=== PATIENT | male | born 1990 | race Asian ===

== ENCOUNTER 2017-04-25 14:19 | Emergency (ER) | payer SELFPAY ==
[~2017-04-25] VITALS: Ht 175.3 cm; Wt 56.7 kg
[2017-04-25 14:25] VITALS: BP 123/84
[2017-04-25] MEDS ORDERED: TRUVADA 200 MG1 EAC1 ORAL (14:47)
--- NOTE | 2017-04-25 14:48 | Emergency Room Report ---
History of Present Illness General Chief Complaint: General Complaint Source: Patient Present Illness HPI 26 y/o homosexual male c/o post exposure prophylaxis. Patient states that he received anal intercourse with another male partner last night which was unprotected. The patient states that he is unsure if the partner had climaxed while penetrated or not and is requesting PREP. States he has no hx of STIs in the past and has no physical complaints. Denies any drainage, abnormal growths, abd pain, rectal pain, rectal bleeding, testicular pain, fatigue, weakness or hx of STIs. Allergies: Coded Allergies: No Known Allergies (Unverified , 04/25/17) Patient History Past Medical History: see triage record Past Surgical History: none Pertinent Family History: none Reviewed Nursing Documentation: PMH: Agreed, PSxH: Agreed Nursing Documentation-PMH Past Medical History: No Stated History Review of Systems All Other Systems: negative except mentioned in HPI Physical Exam Vital Signs Date Time Temp Pulse Resp B/P (MAP) Pulse Ox O2 Delivery O2 Flow Rate FiO2 04/25/17 14:25 98.2 82 18 123/84 99 Room Air Sp02 EP Interpretation: reviewed, normal General Appearance: no apparent distress, alert, GCS 15, non-toxic Head: normocephalic, atraumatic Eyes: bilateral eye normal inspection, bilateral eye PERRL ENT: hearing grossly normal, normal pharynx, no angioedema, normal voice Neck: full range of motion, supple/symm/no masses Respiratory: chest non-tender, lungs clear, normal breath sounds, speaking full sentences Cardiovascular #1: regular rate, rhythm, no edema Musculoskeletal: normal inspection, gait/station normal Neurologic: alert, oriented x3, responsive, motor strength/tone normal, sensory intact, speech normal Psychiatric: judgement/insight normal, memory normal, mood/affect normal, no suicidal/homicidal ideation Skin: normal color, no rash, warm/dry, well hydrated Medical Decision Making PA Attestation Dr. Maldonado is my supervising physician with whom patient management has been discussed with. Diagnostic Impression: Primary Impression: High-risk sexual behavior Additional Impression: At risk for HIV due to homosexual contact ER Course Pt. presents to the ED c/o hiv prophylaxis Vital signs: are WNL, pt. is afebrile H&PE are most consistent with high risk homosexual behavior ORDERS: none required at this time, the diagnosis is clinical ED INTERVENTIONS: none required at this time. DISCHARGE: At this time pt. is stable for d/c to home. Will provide printed patient care instructions, and any necessary prescriptions. Care plan and follow up instructions have been discussed with the patient prior to discharge. Last Vital Signs Date Time Temp Pulse Resp B/P (MAP) Pulse Ox O2 Delivery O2 Flow Rate FiO2 04/25/17 14:25 98.2 82 18 123/84 99 Room Air Disposition: HOME, SELF-CARE Condition: Stable Scripts Emtricitabine/Tenofovir 200-300MG* (TRUVADA 200-300MG*) 1 Each Tablet 1 TAB ORAL DAILY, #7 TAB Prov: MINDI CARMICHAEL 04/25/17 Additional Instructions: Take medication as directed. Patient advised to follow up with community clinic for formal STD screening. In general, watch out for any genital itching, burning , sores, or discharge. But be aware that many STIs do not cause any symptoms. The best way to know for sure if you have an STI is to be screened. If you have an STI, you will need treatment. The right treatment will depend on the type of STI you have. If you do have an infection, you might need to tell the people you could have infected. There is no surefire way to prevent all STIs, but there are things you can do to reduce your chances of catching one. The most important thing you can do is to wear a condom every time you have sex. Both male and female condoms can protect against STIs. But be aware that male condoms made out of "natural materials," such as sheep intestine, do NOT protect against STIs. If you are 26 years old or younger, you can get a vaccine to protect against HPV, the virus that causes genital warts. If you do not have hepatitis A or B and have not already gotten the vaccine for hepatitis A or B, you can get those vaccines, too. If your partner has herpes, he or she can reduce the chances of infecting you by taking a medicine called valacyclovir. If you are at very high risk of catching HIV, you might be able to take a pill every day to reduce the chances that you will get HIV. This is an option only for very few at-risk people. MINDI CARMICHAEL Apr 25, 2017 14:48
[2017-04-25 15:10] VITALS: BP 123/84
== END 2017-04-25 15:10 | disposition home or self-care (01) ==
LOC: EMR 14:30
DX: Z20.6 Contact with and (suspected) exposure to human immunodeficiency virus [HIV] (principal)
CPT/HCPCS: 99283